=== PATIENT | female | born 1950 | race Hispanic/Latino ===

== ENCOUNTER 2016-04-24 08:48 | Outpatient (CLI) | payer BC ==
[2016-04-24 09:30] LABS: Alanine Aminotransferase 15 units/L (7-56); Albumin 4.3 g/dL (3.9-5); Albumin/Globulin Ratio 1.4 %; Alkaline Phosphatase 81 units/L (35-129); Bilirubin,Total 0.2 mg/dL (0.1-1.2); Blood Urea Nitrogen 12 mg/dL (7-17); Calcium 8.9 mg/dL (8.4-10.2); Carbon Dioxide 25 mmol/L (22-30); Cholesterol 159 mg/dL (50-199); Glucose 159 mg/dL (65-100); HDL Cholesterol 66 mg/dL (40-59); LDL Cholesterol,Direct 70 mg/dL (50-130); Total Protein 7.3 g/dL (6.3-8.2); Triglycerides 118 mg/dL (2-149)
[2016-04-24 09:31] LABS: Anion Gap 19 mmol/L; Chloride 101.5 mmol/L (98-107); Sodium 140 mmol/L (137-145)
== END 2016-04-24 08:49 | disposition home or self-care (01) ==
LOC: LAB 08:48
PROVIDERS: ATTEND Internal Medicine
DX: E11.9 Type 2 diabetes mellitus without complications (principal); E03.9 Hypothyroidism, unspecified; E78.5 Hyperlipidemia, unspecified
CPT/HCPCS: 36415; 80053; 80061; 83036; 84439; 84443

== ENCOUNTER 2016-05-15 09:27 | Emergency (ER) | payer BC ==
[2016-05-15 10:07] LABS: Basophils % (Auto) 0.6 % (0.0-1.8); Eosinophils % (Auto) 2.4 % (0.0-4.3); Hematocrit 38.7 % (30.3-42.9); Hemoglobin 12.9 gm/dl (10.1-14.3); Mean Corpuscular HGB Conc 33 % (30-34); Mean Corpuscular Hemoglobin 31 pg (28-32); Mean Corpuscular Volume 92 fl (79-97); Platelet Count 288 K/mm3 (140-440); Red Blood Count 4.22 M/mm3 (3.65-5.03); Red Cell Distribution Width 13.1 % (13.2-15.2); White Blood Count 7.2 K/mm3 (4.5-11.0)
[2016-05-15 10:23] LABS: Anion Gap 19 mmol/L; Blood Urea Nitrogen 9 mg/dL (7-17); Calcium 9.2 mg/dL (8.4-10.2); Carbon Dioxide 24 mmol/L (22-30); Chloride 99.5 mmol/L (98-107); Glucose 159 mg/dL (65-100); Potassium 4.8 mmol/L (3.6-5.0); Sodium 138 mmol/L (137-145)
[2016-05-15 12:08] VITALS: BP 128/70
--- NOTE | 2016-05-15 12:10 | XRay Report ---
CHEST X-RAY, 2 VIEWS History: Cough. Findings: Compared to 02/25/09. There is mild hyperinflation. The lungs are clear. No evidence for pneumonia, pleural effusion or pneumothorax. Normal heart and mediastinal structures. Normal bony thorax. No change since 1999. Impression: Mild emphysematous changes. No acute process.
--- NOTE | 2016-05-15 12:42 | Emergency Department Report ---
ED General Adult HPI - General Chief complaint: Upper Respiratory Infection Stated complaint: COUGH X7 DAYS/SOB Time Seen by Provider: 05/15/16 12:12 Source: patient Mode of arrival: Ambulatory Limitations: No Limitations - History of Present Illness Initial comments: She complains of cough for about a week's duration. She states that she was placed on Amoxil or tonsillitis by an ENT physician. She does not report a positive strep test. She states that she called the EMS and [facility] on Friday because of cough. She has not produced sputum. She states that she has not seen any hemoptysis. She does not complain of chest pain. She states that she feels soreness in her lower abdomen when she coughs only. She has developed a rash while taking her Amoxil. During the week she felt like she had a fever but did not measure it with a thermometer. She denies dyspnea. She eyes any pleuritic pain. She denies any leg pain Pain or recent travel or leg swelling. Patient states that she had recent diagnostic studies of her abdomen for "irritable bowel". I reviewed these studies. They did not show anything supple stay active as far as emergency issues. -: Gradual, week(s) Location: right (lower quadrant of the abdomen states she feels like she " pulled something from coughing".) Severity scale (0 -10): 3 - Related Data Home Medications Medication Instructions Recorded Confirmed Last Taken Divalproex Dr [DepParvezTE DR] 250 mg PO QHS 05/15/16 05/15/16 Unknown Levothyroxine [Synthroid] 88 mcg PO QAM 05/15/16 05/15/16 Unknown Metformin HCl [Metformin HCl] 500 mg PO BID 05/15/16 05/15/16 Unknown clonazePAM [Clonazepam] 2 mg PO QHS 05/15/16 05/15/16 Unknown Previous Rx's Medication Instructions Recorded Last Taken Type Benzonatate [Tessalon Perles] 100 mg PO Q8HR #20 capsule 05/15/16 Unknown Rx hydrOXYzine HCL [Atarax] 25 mg PO Q6HR PRN #20 tablet 05/15/16 Unknown Rx Allergies Allergy/AdvReac Type Severity Reaction Status Date / Time amoxicillin Allergy Rash Verified 05/15/16 09:38 ED Review of Systems ROS: Stated complaint: COUGH X7 DAYS/SOB Other details as noted in HPI Constitutional: denies: chills, fever Eyes: other (congestion ). denies: eye pain, eye discharge, vision change ENT: ear pain. denies: throat pain Respiratory: cough. denies: shortness of breath, SOB with exertion, SOB at rest , wheezing Cardiovascular: denies: chest pain, palpitations Endocrine: no symptoms reported Gastrointestinal: as per HPI, abdominal pain. denies: nausea, diarrhea Genitourinary: denies: urgency, dysuria, discharge Musculoskeletal: denies: back pain, joint swelling, arthralgia Skin: denies: rash, lesions Neurological: denies: headache, weakness, paresthesias Psychiatric: denies: anxiety, depression Hematological/Lymphatic: denies: easy bleeding, easy bruising ED Past Medical Hx - Past Medical History Hx Diabetes: Yes Additional medical history: Thyroid, Anxiety disorder - Surgical History Additional Surgical History: Hysterectomy, dental implants - Social History Smoking Status: Never Smoker Substance Use Type: None - Medications Home Medications: Home Medications Medication Instructions Recorded Confirmed Last Taken Type Benzonatate [Tessalon Perles] 100 mg PO Q8HR #20 capsule 05/15/[address] [DepaKOTE DR] 250 mg PO QHS 05/15/16 05/15/16 Unknown History Levothyroxine [Synthroid] 88 mcg PO QAM 05/15/16 05/15/16 Unknown History Metformin HCl [Metformin HCl] 500 mg PO BID 05/15/16 05/15/16 Unknown History clonazePAM [Clonazepam] 2 mg PO QHS 05/15/16 05/15/16 Unknown History hydrOXYzine HCL [Atarax] 25 mg PO Q6HR PRN #20 tablet 05/15/16 Unknown Rx ED Physical Exam - General Limitations: No Limitations General appearance: alert, in no apparent distress - Head Head exam: Present: atraumatic, normocephalic - Eye Eye exam: Present: normal appearance, PERRL, EOMI. Absent: scleral icterus - ENT ENT exam: Present: normal exam, mucous membranes moist, TM's normal bilaterally. Absent: normal orophraynx ([place] erythematous) - Neck Neck exam: Present: normal inspection. Absent: tenderness, meningismus - Respiratory Respiratory exam: Present: normal lung sounds bilaterally. Absent: respiratory distress - Cardiovascular Cardiovascular Exam: Present: regular rate, normal rhythm. Absent: systolic murmur, diastolic murmur, rubs, gallop - GI/Abdominal GI/Abdominal exam: Present: soft, normal bowel sounds. Absent: distended, tenderness, guarding, rebound, rigid - Extremities Exam Extremities exam: Present: normal inspection, full ROM, normal capillary refill. Absent: tenderness, pedal edema, joint swelling, calf tenderness - Back Exam Back exam: Present: normal inspection. Absent: CVA tenderness (R), CVA tenderness (L) - Neurological Exam Neurological exam: Present: alert, oriented X3 - Psychiatric Psychiatric exam: Present: normal affect, normal mood - Skin Skin exam: Present: warm, dry, intact, rash (diffuse erythematous papular rash) ED Course Vital Signs 05/15/16 05/15/16 05/15/16 09:38 12:00 12:08 Temperature 98.1 F 97.8 F Pulse Rate 85 85 Respiratory 20 16 16 Rate Blood Pressure 118/69 Blood Pressure 128/70 [Left] O2 Sat by Pulse 100 98 98 Oximetry - Reevaluation(s) Reevaluation #1: Patient's pulse oximetry was normal. Her vital signs were normal. She appeared completely nontoxic. She is appropriate for outpatient follow-up. She is instructed to stop her ampicillin. 05/15/16 12:47 ED Medical Decision Making - Lab Data Result diagrams: 05/15/16 09:56 05/15/16 09:56 Laboratory Results - last 24 hr 05/15/16 05/15/16 09:56 09:56 WBC 7.2 RBC 4.22 Hgb 12.9 Hct 38.7 MCV 92 MCH 31 MCHC 33 RDW 13.1 L Plt Count 288 Lymph % (Auto) 42.7 H [place] % (Auto) 6.5 Eos % (Auto) 2.4 Baso % (Auto) 0.6 Lymph # 3.1 [place] # 0.5 Eos # 0.2 Baso # 0.0 Seg Neutrophils % 47.8 Seg Neutrophils # 3.5 Sodium 138 Potassium 4.8 Chloride 99.5 Carbon Dioxide 24 Anion Gap 19 BUN 9 Creatinine 0.9 Estimated GFR > 60 BUN/Creatinine Ratio 10.00 Glucose 159 H Calcium 9.2 Troponin T < 0.010 Critical care attestation.: If time is entered above; I have spent that time in minutes in the direct care of this critically ill patient, excluding procedure time. ED Disposition Clinical Impression: Viral upper respiratory illness, Drug eruption Type 2 diabetes mellitus Qualifiers: Diabetes mellitus complication status: without complication Diabetes mellitus [facility] insulin use: without [facility] use Qualified Code(s): E11.9 - Type 2 diabetes mellitus without complications Disposition: DISCHARGED TO HOME OR SELFCARE Is pt being admited?: No Does the pt Need Aspirin: No Condition: Stable Instructions: Antibiotic Medication Allergy (ED), Diabetes Mellitus Type 2 in Adults (ED) Additional Instructions: It appears you're allergic to ampicillin. Therefore he will have to avoid penicillin type medications unless an gameroom technician tells you otherwise. Return any acute change or worsening symptoms. Follow-up with her usual primary care provider. Prescriptions: Benzonatate [Tessalon Perles] 100 mg PO Q8HR #20 capsule hydrOXYzine HCL [Atarax] 25 mg PO Q6HR PRN #20 tablet PRN Reason: Itching Referrals: PRIMARY CARE, [Primary Care Provider] - 2-3 Days Time of Disposition: 12:53
== END 2016-05-15 13:04 | disposition home or self-care (01) ==
LOC: ED 09:27
DX: J06.9 Acute upper respiratory infection, unspecified (principal); L27.0 Generalized skin eruption due to drugs and medicaments taken internally; E11.9 Type 2 diabetes mellitus without complications; F41.9 Anxiety disorder, unspecified; E07.9 Disorder of thyroid, unspecified; Z88.1 Allergy status to other antibiotic agents
CPT/HCPCS: 36415; 71020; 80048; 84484; 85025; 93005; 93010

== ENCOUNTER 2016-08-01 11:00 | Outpatient (CLI) | payer BC ==
[2016-08-01 09:13] LABS: Alanine Aminotransferase 10 units/L (7-56); Albumin 4.5 g/dL (3.9-5); Albumin/Globulin Ratio 1.7 %; Alkaline Phosphatase 107 units/L (35-129); Anion Gap 17 mmol/L; Bilirubin,Total 0.2 mg/dL (0.1-1.2); Blood Urea Nitrogen 14 mg/dL (7-17); Calcium 9.1 mg/dL (8.4-10.2); Carbon Dioxide 26 mmol/L (22-30); Chloride 102.6 mmol/L (98-107); Cholesterol 161 mg/dL (50-199); Glucose 115 mg/dL (65-100); HDL Cholesterol 62 mg/dL (40-59); LDL Cholesterol,Direct 82 mg/dL (50-130); Potassium 4.6 mmol/L (3.6-5.0); Sodium 141 mmol/L (137-145); Total Protein 7.1 g/dL (6.3-8.2); Triglycerides 87 mg/dL (2-149)
[2016-08-05 09:41] LABS: Vitamin D, 25-OH, Total 16 ng/mL (30-100)
== END 2016-08-01 11:01 | disposition home or self-care (01) ==
LOC: LAB 11:00
PROVIDERS: ATTEND Internal Medicine Endocrinology, Diabetes & Metabolism
DX: Z51.81 Encounter for therapeutic drug level monitoring (principal); E11.9 Type 2 diabetes mellitus without complications; E03.9 Hypothyroidism, unspecified; E55.9 Vitamin D deficiency, unspecified; E78.5 Hyperlipidemia, unspecified
CPT/HCPCS: 36415; 80053; 80061; 82306; 83036; 84436; 84443; 84479

== ENCOUNTER 2017-01-16 07:41 | Outpatient (CLI) | payer BC ==
--- NOTE | 2017-01-16 08:55 | Mammography Report ---
Bilateral screening mammogram with tomosynthesis. Comparison study is dated January 15, 2016. Findings: The breast parenchyma is heterogeneously dense. In the lower inner quadrant of the right breast, there is an ill-defined peripheral asymmetry which is better seen on the tomosynthesis images or the margins are fairly well-circumscribed. There is no architectural distortion. No suspicious calcifications are seen. Impression: Left parenchymal asymmetry measuring approximately 1.3 x 0.6 cm. BI-RADS code: 0. Recommendation: Targeted left breast ultrasound.
== END 2017-01-16 07:42 | disposition home or self-care (01) ==
LOC: MAMMO 07:41
PROVIDERS: ATTEND Internal Medicine
DX: Z12.31 Encounter for screening mammogram for malignant neoplasm of breast (principal)
CPT/HCPCS: 77063; G0202; 77067

== ENCOUNTER 2017-01-20 13:02 | Outpatient (CLI) | payer BC ==
--- NOTE | 2017-01-20 14:21 | Mammography Report ---
LEFT DIGITAL DIAGNOSTIC MAMMOGRAM and LEFT BREAST ULTRASOUND: 01/20/17 13:02:00 CLINICAL: Recalled for asymmetry. COMPARISON:01/16/17 screening FINDINGS: Lateralmedial and spot compression MLO and CC views were performed and demonstrated persistent oval circumscribed mass or cyst in the lower inner quadrant. Ultrasound of the lower inner left breast was performed and demonstrated a benign cyst at 7 o'clock 3 cm from the nipple. It measures 1.2 x 0.6 x 1.1 cm and correlates with the mammographic density. IMPRESSION: Benign cyst at 7 o'clock left breast. BI-RADS CATEGORY: 2 - - Benign RECOMMENDATION: Routine mammographic screening in one year. ACR BI-RADS MAMMOGRAPHIC CODES: 0 = Needs additional imaging evaluation; 1 = Negative; 2 = Benign; 3 = Probably benign; 4 = Suspicious; 5 = Malignant; 6 = Known biopsy-proven malignancy COMMENT: 1. Dense breast tissue, i.e., adenosis, fibrocystic changes, etc., may obscure an underlying neoplasm. 2. Approximately 10% of cancers are not detected with mammography. 3. A negative mammography report should not delay biopsy if a clinically suspicious mass is present. COMMENT: Patient follow-up letters are generated via our [id number] application.
== END 2017-01-20 13:03 | disposition home or self-care (01) ==
LOC: MAMMO 13:02
PROVIDERS: ATTEND Internal Medicine
DX: N60.02 Solitary cyst of left breast (principal)
CPT/HCPCS: 76642; G0206

== ENCOUNTER 2017-05-09 09:19 | Day surgery (SDC) | payer BC ==
[2017-05-09] MEDS ORDERED: NACL 0.9% 1000 ML 1,000 ML IV SCH (10:00)
--- NOTE | 2017-05-09 10:27 | Anesthesia Consultation ---
Anesthesia Consult and Med Hx Date of service: 05/09/17 - Airway Anesthetic Teeth Evaluation: Good ROM Head & Neck: Adequate Mental/Hyoid Distance: Adequate Mallampati Class: Class II Intubation Access Assessment: Probably Good - Pulmonary Exam CTA: Yes - Pre-Operative Health Status ASA Pre-Surgery Classification: ASA2 Proposed Anesthetic Plan: MAC - Pulmonary Hx Respiratory Symptoms: Yes (bronchitis) - Endocrine Hx Non-Insulin Dependent Diabetes: Yes (metformin) Hx Hypothyroidism: Yes - Hematic Hx Anemia: Yes
--- NOTE | 2017-05-09 10:27 | Anesthesia Day of Surgery ---
Anesthesia Day of Surgery - Day of Surgery Patient Examined: Yes Patient H&P Reviewed: Yes Patient is NPO: Yes
[2017-05-09] MEDS ORDERED: WATER FOR IRRIG STERILE IR ONE (11:40)
[2017-05-09] MEDS ORDERED: DIPRIVAN 10 MG/ML IV ONE ×2 (11:49)
--- NOTE | 2017-05-09 12:10 | History and Physical Report ---
HISTORY OF PRESENT ILLNESS: This is a 70-year-old white female with an underlying history of diabetes, hypothyroidism and fibromyalgia who has lately been having problems with abdominal pain, bloating and abnormal bowel movements. She has a very strong family history of cancer. The patient's father had lung cancer, 2 aunts have had also lung cancer and history of breast cancer and liver cancer as well as colon cancer. Last colonoscopy was said to be 4 years ago, which said be have been unremarkable. ALLERGIES: History of allergy to AMOXICILLIN. PHYSICAL EXAMINATION: VITAL SIGNS: She is afebrile. Blood pressure 141/65, pulse is 83, height is 5 feet 7 inches, weight is 130. HEENT: Shows no JVD. LUNGS: Clear to auscultation. CARDIOVASCULAR: Normal. ABDOMEN: Soft. Bowel sounds present. EXTREMITIES: There is some mid abdominal tenderness. NEUROLOGIC: Otherwise alert and oriented. ASSESSMENT: Dyspepsia, changes in bowel habits, diabetes, hypothyroidism, history of fibromyalgia. PLAN: Is to do an EGD at [facility] on 05/09/2017. The patient also has said to have had a recent CT scan done, which was essentially unremarkable. It did not show any kidney stones or pancreatic abnormality but did show evidence of constipation. The patient may require a colonoscopy at a later time. JOB# [id number] GUSTAVO/ARABELLA
--- NOTE | 2017-05-09 12:13 | Procedure Note ---
Date of procedure: 05/09/17 Pre-op diagnosis: Dyspepsia Post-op diagnosis: other (Mild Esophagitis/Gastritis/R/O Celiac Disease) Procedure: EGD with biopsy done with MAC anesthesia. Biopsy done from the Duodenume to r/ o for Celiac Disease and biopsy from the gastric antrum, gastric body and angular incisura to assess for H.pylori,atrophic gastritis and Celiac Disease. Anesthesia: MAC Surgeon: JAGDISH HALL Estimated blood loss: minimal Pathology: list Specimen disposition: to lab Condition: stable Disposition: same day (Follow up in 1 to 2 weeks.)
--- NOTE | 2017-05-09 12:50 | Operative Report ---
PROCEDURE: Esophagogastroduodenoscopy with biopsy. INDICATIONS: This is a 67-year-old white female who has an underlying history of diabetes mellitus and hypothyroidism as well as fibromyalgia who has been having dyspeptic symptoms. EGD was done to assess for the problem. DESCRIPTION OF PROCEDURE: Procedure was done after getting informed consent with MAC anesthesia. Instrument was passed through the hypopharynx into the esophagus, which showed some mild distal esophagitis. Stomach showed some mild gastritis. Biopsy was done from the gastric body, the gastric antrum, and the angular incisure to rule out for H. pylori and atrophic gastritis. There was no gastric ulcer noted in the straight on the retroverted view. The pylorus was patent. The duodenum in the first and the second portion appeared normal. Biopsy was done from the duodenum to rule out for associated celiac disease since the patient has an underlying history of diabetes. There is minimal bleeding from the biopsy sites and no complications associated with the procedure. ASSESSMENT: Mild distal esophagitis, gastritis, rule out celiac disease. PLAN: The patient will be treated with PPI, p.r.n. dose of Bentyl if needed. Encouraged to take probiotics. Asked to avoid aspirin and aspirin-related products and follow up in the office in about 1-2 weeks' time. JOB# [id number] GUSTAVO/ARABELLA
[2017-05-09 13:05] VITALS: BP 147/71
== END 2017-05-09 09:20 | disposition home or self-care (01) ==
LOC: GIO 09:19
DX: K29.50 Unspecified chronic gastritis without bleeding (principal); K31.89 Other diseases of stomach and duodenum; K20.8 Other esophagitis; E03.9 Hypothyroidism, unspecified; E11.9 Type 2 diabetes mellitus without complications; Z88.1 Allergy status to other antibiotic agents; Z80.0 Family history of malignant neoplasm of digestive organs; Z90.710 Acquired absence of both cervix and uterus; Z98.890 Other specified postprocedural states; Z90.721 Acquired absence of ovaries, unilateral
CPT/HCPCS: 43239; 82962; 88305; 88342; J2704; J7030

== ENCOUNTER 2018-01-08 08:14 | Outpatient (CLI) | payer BC ==
[2018-01-08 10:34] LABS: Blood Urea Nitrogen 14 mg/dL (7-17)
--- NOTE | 2018-01-08 12:20 | Magnetic Resonance Report ---
MRI LUMBAR SPINE WITHOUT CONTRAST HISTORY: Lumbar radiculopathy affecting left lower extremity. TECHNIQUE: axial T1, T2. sagittal T1,T2, STIR. COMPARISON: none. FINDINGS: The conus terminates at L1. No signal abnormality or mass. The cauda equina is within normal limits. No central canal stenosis. Normal height and alignment of the lumbar vertebra. The facet joints are in appropriate relationship. Normal bone marrow signal. No acute fracture or suspicious bone lesion. The discs are normal height and signal. L1-2: Normal. L2-3: Normal. L3-4: The disc is normal. Minimal facet arthropathy. L4-5: The disc is normal. There is moderate facet arthropathy and mild ligamentum flavum. L5-S1: Normal. Following administration of IV contrast, there is mild enhancement surrounding the left S1 nerve root which is best demonstrated on postcontrast axial image 8. There is no obvious bulging disc or herniation in this area. The etiology of this is unclear. This presumably represents a left S1 neuritis. Please correlated the patient. IMPRESSION: Mild enhancement of the left S1 nerve root is identified within the spinal canal suggesting a nonspecific neuritis. Please see above. No evidence for advanced degenerative changes, herniation or bony narrowing of the canal/neural foramen.
== END 2018-01-08 08:15 | disposition home or self-care (01) ==
LOC: MRI 08:14
PROVIDERS: ATTEND Internal Medicine
DX: M46.86 Other specified inflammatory spondylopathies, lumbar region (principal); E11.9 Type 2 diabetes mellitus without complications; E03.9 Hypothyroidism, unspecified; Z90.710 Acquired absence of both cervix and uterus; Z90.721 Acquired absence of ovaries, unilateral
CPT/HCPCS: 36415; 72158; 82565; 84520; A9577

== ENCOUNTER 2019-01-01 07:39 | Outpatient (CLI) | payer BC | END 2019-01-01 07:40 | disposition home or self-care (01) | LOC: LAB 07:39 | PROVIDERS: ATTEND Internal Medicine Gastroenterology | DX: K58.9 Irritable bowel syndrome, unspecified (principal); E11.9 Type 2 diabetes mellitus without complications; E03.9 Hypothyroidism, unspecified | CPT/HCPCS: 87045; 87177; 87493 ==

== ENCOUNTER 2019-01-07 07:44 | Outpatient (CLI) | payer BC ==
[2019-01-07 08:19] LABS: Hemoglobin 12.8 gm/dl (10.1-14.3); Mean Corpuscular HGB Conc 34 % (30-34); Mean Corpuscular Volume 93 fl (79-97); Platelet Count 279 K/mm3 (140-440); Red Cell Distribution Width 12.9 % (13.2-15.2)
[2019-01-07 08:27] LABS: Bacteria,Urine 1+ /HPF (Negative); Bilirubin,Urine NEG (Negative); Blood,Urine SM (Negative); Color,Urine Yellow (Yellow); Protein,Urine <15 mg/dL mg/dL (Negative)
[2019-01-07 08:37] LABS: Alanine Aminotransferase 11 units/L (7-56); Albumin 4.4 g/dL (3.9-5); BUN/Creatinine Ratio 14; Blood Urea Nitrogen 10 mg/dL (7-17); Calcium 8.5 mg/dL (8.4-10.2); Chol/HDL Ratio 2.62 %; HDL Cholesterol 61 mg/dL (40-59); Hemolysis Index 0; LDL Cholesterol,Direct 81 mg/dL (50-130)
== END 2019-01-07 07:45 | disposition home or self-care (01) ==
LOC: LAB 07:44
PROVIDERS: ATTEND Internal Medicine
DX: Z00.00 Encounter for general adult medical examination without abnormal findings (principal); M81.0 Age-related osteoporosis without current pathological fracture; E11.9 Type 2 diabetes mellitus without complications
CPT/HCPCS: 36415; 80053; 80061; 81001; 83036; 84443; 85027; 87086

== ENCOUNTER 2019-01-22 09:25 | Outpatient (CLI) | payer BC ==
--- NOTE | 2019-01-22 14:17 | Mammography Report ---
DIGITAL SCREENING MAMMOGRAM WITH CAD, 01/22/2019 INDICATION: Routine screening mammography. TECHNIQUE: Digital bilateral 2D mammography was obtained in the craniocaudal and mediolateral obliq ue projections. This examination was interpreted with the benefit of Computer-Aided Detection analysi s. COMPARISON: 01/21/2018 FINDINGS: Breast Density: The breasts are heterogeneously dense, which may obscure small masses. There is no evidence of dominant mass, suspicious calcifications or architectural distortion in eithe r breast. A left lower inner cyst is not significantly changed compared to the last exam. IMPRESSION: No mammographic evidence of malignancy. Follow up recommendation: Routine yearly BI-RADS Category 2: Benign. A "normal" or negative report should not discourage follow up or biopsy of a clinically significant f inding. A written summary of these findings will be mailed to the patient. The patient will be entered into a mammography reporting system which will generate a reminder letter for the patient's next appointmen t at the appropriate interval. The [employer] recommends yearly mammograms starting at age 40 and continuing as l cristi as a woman is in good health. Breast MRI is recommended for women with an approximate 20-25% or greater lifetime risk of breast cancer, including women with a strong family history of breast or ova sarah cancer or who have been treated for Hodgkin's disease. Signer Name: Leandro Haley MD Signed: 01/22/2019 2:13 PM Workstation Name: [id number]
== END 2019-01-22 09:26 | disposition home or self-care (01) ==
LOC: MAMMO 09:25
PROVIDERS: ATTEND Internal Medicine
DX: Z12.31 Encounter for screening mammogram for malignant neoplasm of breast (principal); E03.9 Hypothyroidism, unspecified; E11.9 Type 2 diabetes mellitus without complications; Z79.84 Long term (current) use of oral hypoglycemic drugs; Z90.710 Acquired absence of both cervix and uterus; Z86.2 Personal history of diseases of the blood and blood-forming organs and certain disorders involving the immune mechanism
CPT/HCPCS: 77067

== ENCOUNTER 2019-03-23 07:42 | Day surgery (SDC) | payer BC ==
[2019-03-23] MEDS ORDERED: SODIUM CHLORIDE 0.9% 1000 ML 1,000 ML IV SCH (08:15)
--- NOTE | 2019-03-23 09:19 | Anesthesia Consultation ---
Anesthesia Consult and Med Hx Date of service: 03/23/19 - Airway Anesthetic Teeth Evaluation: Good ROM Head & Neck: Adequate Mental/Hyoid Distance: Adequate Mallampati Class: Class II Intubation Access Assessment: Probably Good - Pulmonary Exam CTA: Yes - Cardiac Exam Cardiac Exam: RRR - Pre-Operative Health Status ASA Pre-Surgery Classification: ASA3 - Pulmonary Hx Respiratory Symptoms: Yes (bronchitis) - Endocrine Hx Non-Insulin Dependent Diabetes: Yes (metformin) Hx Hypothyroidism: Yes - Hematic Hx Anemia: Yes
--- NOTE | 2019-03-23 09:19 | Anesthesia Day of Surgery ---
Anesthesia Day of Surgery - Day of Surgery Patient Examined: Yes Patient H&P Reviewed: Yes Patient is NPO: Yes
[2019-03-23] MEDS ORDERED: LIDOCAINE MPF (2%) 20 MG/1 ML VIAL 5 ML ONE (09:30)
[2019-03-23] MEDS ORDERED: PROPOFOL 200 MG/20 ML VIAL IV ONE ×2 (09:48)
--- NOTE | 2019-03-23 10:10 | Short Stay Summary ---
Short Stay Documentation Date of service: 03/23/19 Narrative H&P: The patient presents for diagnostic colonoscopy for recurrent diarrhea - History Past Medical History: diabetes, hypothyroidism, other (History of TIA, osteoporosis.) Past Surgical History: hysterectomy Social history: no significant social history - Allergies and Medications Current Medications: Allergies amoxicillin Allergy (Verified 05/15/16 09:38) Rash Home Medications Medication Instructions Recorded Confirmed Last Taken Type Divalproex Dr [DepaKOTE DR] 250 mg PO QHS 05/15/16 03/23/19 03/22/19 History Levothyroxine [Synthroid] 88 mcg PO QAM 05/15/16 03/23/19 03/22/19 History Metformin HCl 500 mg PO BID 05/15/16 03/23/19 05/08/17 History KlonoPIN 2 mg PO HS 05/09/17 03/23/19 03/22/19 History Active Medications Sodium Chloride (Nacl 0.9% 1000 Ml) 1,000 mls @ 50 mls/hr IV DIRECT SUSI Last Admin: 03/23/19 08:55 Dose: 50 mls/hr Documented by: - Physical exam General appearance: no acute distress, well-nourished Integumentary: no rash, no growths, no abnormal pigmentation HEENT: Atraumatic, PERRLA, EOMI, Mucous membr. moist/pink Lungs: Clear to auscultation, Normal air movement Breasts: deferred Heart: Regular rate, Normal S1, Normal S2, No murmurs Gastrointestinal: normoactive bowel sounds, no tenderness, no distended, no masses, no guarding, no organomegaly Female Genitourinary: deferred Rectal Exam: normal exam-external/orifice, no mass Extremities: no ischemia, pulses intact, pulses symmetrical, No edema, normal temperature, normal color, Full ROM Neurological: Normal gait, Normal speech, Strength at 5/5 X4 ext, Normal tone, Sensation intact, Cranial nerves 3-12 NL - Brief post op/procedure progress note Date of procedure: 03/23/19 Findings: see dictation Estimated blood loss: none Pathology: list (right colon biopsies for exclusion of microscopic colitis.) Specimen disposition: to lab Condition: stable - Disposition Condition at discharge: Good Disposition: DC-01 TO HOME OR SELFCARE - Discharge Diagnoses (1) Chronic diarrhea Status: Acute Short Stay Discharge Plan Activity: other (no driving for 24 hours) Weight Bearing Status: Full Weight Bearing Diet: regular Follow up with: ADRIANA JAMESON MD [Primary Care Provider] - 7 Days
--- NOTE | 2019-03-23 10:12 | Operative Report ---
Operative Report Operative Report: Date of procedure: 03/23/2019 Preprocedure diagnosis: Intermittent diarrhea. Post procedure diagnosis: Normal study Procedure: Colonoscopy to the cecum with random right colon biopsies to exclude microscopic colitis Endoscopist: Dr. Kim Anesthesia: Monitored anesthesia care per anesthesia department Estimated blood loss: 0 Medications: Monitored anesthesia care. See separate report by anesthesia for details. After careful discussion of the nature and purpose of the procedure as well as details of the technique risks benefits and alternatives the patient gave consent. Please see recent history and physical from the office. The patient was placed in the left lateral decubitus position and medicated per anesthesia. A rectal exam was performed sphincter tone was normal there were no masses palpable. The Olympus colonoscope was passed transanally and advanced under continuous direct vision without difficulty to the cecum. The colon was well prepared. The cecum was normal. The ascending colon was normal and on forward and retroflexed views. The transverse colon, descending colon, and sigmoid colon were normal. Random biopsies were taken in the right colon for exclusion of microscopic colitis. The rectum was normal on forward and retroflexed views. The procedure was well-tolerated overall and the patient was observed in recovery. Conclusions: Normal colonoscopy to the cecum. Plan: Await biopsy results to the patient call the office in approximately 10 days. Signed electronically: Reinier Kim M.D.
[2019-03-23 10:53] VITALS: BP 140/67
--- NOTE | 2019-03-23 12:51 | Post Anesthesia Evaluation ---
- Post Anesthesia Evaluation Patient Participated: Yes Airway Patent: Yes Stable Respiratory Function: Yes Nausea/Vomiting: No Temp > 96.8F: Yes Pain Manageable: Yes Adequeate Hydration: Yes Anesthesia Complications: No Block Receding Appropriately: Not Applicable Patient on Ventilator: No
== END 2019-03-23 07:43 | disposition home or self-care (01) ==
LOC: GIO 07:42
PROVIDERS: ATTEND Internal Medicine Gastroenterology
DX: R19.7 Diarrhea, unspecified (principal); K63.89 Other specified diseases of intestine; E11.9 Type 2 diabetes mellitus without complications; E03.9 Hypothyroidism, unspecified; D64.9 Anemia, unspecified; Z98.890 Other specified postprocedural states; Z88.6 Allergy status to analgesic agent; Z79.899 Other long term (current) drug therapy; Z98.51 Tubal ligation status; Z90.710 Acquired absence of both cervix and uterus; Z90.721 Acquired absence of ovaries, unilateral
CPT/HCPCS: 45380; 82962; 88305; J2704; J7030

== ENCOUNTER 2019-04-26 10:24 | Outpatient (CLI) | payer BC ==
[2019-04-26 11:08] LABS: BUN/Creatinine Ratio 11; Blood Urea Nitrogen 9 mg/dL (7-17); Calcium 9.2 mg/dL (8.4-10.2); Hemolysis Index 10
[2019-04-26 11:28] LABS: Free T4 (Free Thyroxine) 1.6 ng/dL (0.76-1.46)
== END 2019-04-26 10:25 | disposition home or self-care (01) ==
LOC: LAB 10:24
PROVIDERS: ATTEND Internal Medicine
DX: E11.9 Type 2 diabetes mellitus without complications (principal); E03.8 Other specified hypothyroidism
CPT/HCPCS: 36415; 80048; 83036; 84439; 84443

== ENCOUNTER 2019-08-04 07:35 | Outpatient (CLI) | payer BC ==
[2019-08-04 08:48] LABS: Hematocrit 37.9 % (30.3-42.9); Hemoglobin 13.1 gm/dl (10.1-14.3); Mean Corpuscular HGB Conc 35 % (30-34); Mean Corpuscular Volume 93 fl (79-97); Platelet Count 268 K/mm3 (140-440); Red Blood Count 4.07 M/mm3 (3.65-5.03); Red Cell Distribution Width 13.6 % (13.2-15.2)
[2019-08-04 09:21] LABS: Alanine Aminotransferase 8 units/L (7-56); Albumin 4.4 g/dL (3.9-5); BUN/Creatinine Ratio 10; Blood Urea Nitrogen 9 mg/dL (7-17); Calcium 9.3 mg/dL (8.4-10.2); Hemolysis Index 10
== END 2019-08-04 07:36 | disposition home or self-care (01) ==
LOC: LAB 07:35
PROVIDERS: ATTEND Internal Medicine
DX: E11.9 Type 2 diabetes mellitus without complications (principal); E03.9 Hypothyroidism, unspecified; R63.4 Abnormal weight loss
CPT/HCPCS: 36415; 80053; 83036; 84439; 84443; 84480; 85027